=== PATIENT | female | born 1995 | race Caucasian/White ===

== ENCOUNTER 2019-07-27 17:37 | Emergency (ER) | payer OTHER, SELFPAY ==
[2019-07-27 17:39] VITALS: BP 174/108; PULSE 81; RESP 17; TEMP 36.7; O2SAT 99; BMI 48.2
--- NOTE | 2019-07-27 18:09 | ED.VISSUMM ---
- ER Visit Summary Date of Service: 07/27/19 Chief Complaint: Palm laceration History of Present Illness: The patient is a 24 F history of anxiety. 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 No other injuries. Tetanus is 10 years old or more. One set updated. She is right-hand dominant. This occurred in the last hour or so. Physical Examination: Well appearing young female no acute distress vital signs stable afebrile. HEENT neck heart-lung abdominal exam unremarkable. Right palm she is a 2 centimeter laceration in her right palm. It is on the thenar eminence. There is oozing of blood. No pulsatile bleeding. Otherwise he is neurovascularly intact. No signs of infection or foreign body. Full flexion and extension of the right hand. Normal touch sensation and motor strength. Test Results: None Emergency Department Course and Treatment: Procedure note. Lidocaine local anesthetic to the wound. Washed with saline cleaned with Shur-Clens irrigated and explored. Closed using 2 simple interrupted 4-0 Ethilon sutures. Proper hemostasis wound closure obtained. Patient was warned of wound care and any signs of infection return. Treatment Plan: Suture removal 7 to 10 days. Wound care. Tetanus updated. Disposition: Discharge Impression: Right hand laceration with ER repair of 2 cm Tetanus updated This note was generated with [employer] dictation software. It may contain incorrect words, spelling, and punctuation that were not noted in review of the chart prior to signing ED Disposition - Plan for ED Patient: Referrals: Ang Madrigal PA [Primary Care Provider] -
--- NOTE | 2019-07-27 18:11 | ED.DEP ---
ED Disposition - Plan for ED Patient: Disposition: Home or Assisted Living Instructions: LACERATION, Hand Referrals: Ang Madrigal PA [Primary Care Provider] - 10 Day for suture removal Additional Instructions: Keep wound clean. Antibiotic ointment applied twice daily. Clean twice daily with soap water peroxide and water. Watch for any signs of infection such as pus, fever swelling or red streaks. Is seen return. Suture removal in 7 to 10 days.
[2019-07-27] MEDS: Diphth,Pertuss(Acell),Tet Vac 0.5 ML Vial IM (18:23)
== END 2019-07-27 18:32 | disposition home or self-care (01) ==
LOC: ED 18:17
PROVIDERS: Emergency Provider Emergency Medicine; Family Provider Physician Assistant; PCP Physician Assistant
DX: S61.411A Laceration without foreign body of right hand, initial encounter (principal); W26.0XXA Contact with knife, initial encounter; Y93.E9 Activity, other interior property and clothing maintenance; F41.9 Anxiety disorder, unspecified
CPT/HCPCS: 12001; 90715; 99282

== ENCOUNTER 2020-01-11 13:13 | Emergency (ER) | payer OTHER, SELFPAY ==
[2020-01-11 13:14] VITALS: BP 167/119; PULSE 75; RESP 20; TEMP 37; O2SAT 98; BMI 49.1
--- NOTE | 2020-01-11 13:27 | ED.VIS.GEN ---
History of Present Illness Chief Complaint: Hypertension Informant: Patient Onset: Weeks Maximum Severity: Mild Narrative: Currently in [facility] emergency The patient presents reporting her blood pressures been elevated for about a week or so, she is in the doctor's office recently refill Paxil it was elevated to about 150 she has been measuring her blood pressure at home and today was about 200/110, she had a very mild headache but otherwise she states she feels fine totally asymptomatic no fever no cough no chest pain no abdominal pain no numbness weakness paresthesias normal bowel bladder habits normal diet no weight gain no edema, she does report hypertension runs in her family she denies being and again normal bowel bladder habits and negative review of systems Past Medical History - Allergies and Home Meds Allergies/Adverse Reactions: Allergies No Known Allergies Allergy (Verified 01/11/20 13:16) Primary Care Physician: Ang Madrigal PA [Primary Care Provider] - Past Medical History: - - Paxil for anxiety otherwise negative Smoking Status: Light Smoker (<10/day) Review of Systems General: Denies: Chills, Fever, Sweats Eyes: Reports: - - Mild headache. Denies: Visual changes - bilaterally, Diplopia ENT: Denies: Rhinorrhea, Sore throat Cardiovascular: Denies: Chest pain, Palpitations Respiratory: Denies: Dyspnea, Cough, Dyspnea on exertion Gastrointestinal: Denies: Abdominal pain, Nausea, Vomiting, Diarrhea, Melena, Hematochezia Genitourinary: Denies: Dysuria, Hematuria, Frequency Musculoskeletal: Denies: Back pain, Extremity Pain Skin: Denies: Rash, Wounds Neurological: Denies: Headache, Weakness, Numbness Physical Exam Vital Signs/Narrative: Vital Signs Temp Pulse Resp BP Pulse Ox 01/11/20 13:14 98.6 F 75 20 H 167/119 H 98 General: Well nourished, Well developed, No Acute Distress, - - He is in no distress HEENT cardiac pulmonary GI neurologic exam all unremarkable, she is smiling she is a large woman indicates she is not gained weight she has no signs of leg edema she is had normal bowel bladder habits Head: Normocephalic, Atraumatic Eyes: Perrl, EOMI ENT: Moist mucous membranes, No rhinorrhea Neck: Supple, Nontender Cardiovascular: Regular rate, Regular rhythm, No murmurs Respiratory: No distress, CTA bilaterally, Chest nontender Abdomen: Soft, Nontender, Nondistended, Normal bowel sounds Back: Nontender, Normal Inspection Extremities: Nontender, No edema Skin: Normal color, No rash Neurological: Alert, Oriented x3, Cranial nerves II-XII grossly intact, Normal Strength, Normal Sensation Psychological: Normal affect, Normal Mood Diagnostic/Tx/Re-eval - Medical Decision Making Apparently her spouse is a nurse and that individual took the blood pressure reading at home that was elevated to the above her current blood pressure is about 160/110, she will be treated with clonidine 0.2 mg p.o. we will discussed the case with her primary care physicians The patient's blood pressure is improved now to about 150/80 she has no complaints we discussed ED management and evaluation with testing etc. she deferred that as again she feels fine and back to baseline, we did page primary care we have not been able to contact them, she is comfortable with discharge home calling her primary care physicians tomorrow to discuss other management options that might include lifestyle modifications versus medications and return for change in symptoms Home stable Impression final transiently elevated blood pressure ED Disposition - Plan for ED Patient: Diagnosis: Hypertension Instructions: HYPERTENSION, To Be Confirmed Referrals: Ang Madrigal PA [Primary Care Provider] - Additional Instructions: Call your physician tomorrow for follow-up options and further management options related to hypertension return for change in symptoms
[2020-01-11 13:32] VITALS: BP 156/85
[2020-01-11] MEDS: cloNIDine HCl 0.1 MG Tablet 0.2 MG PO (13:32)
[2020-01-11 14:18] VITALS: BP 137/81; PULSE 68; RESP 18; O2SAT 96
== END 2020-01-11 14:19 | disposition home or self-care (01) ==
LOC: ED 13:46
PROVIDERS: Emergency Provider Emergency Medicine; PCP Physician Assistant
DX: I10 Essential (primary) hypertension (principal); F17.200 Nicotine dependence, unspecified, uncomplicated; Z79.899 Other long term (current) drug therapy
CPT/HCPCS: 99283

== ENCOUNTER → 2020-08-26 11:30 | Outpatient (CLI) | payer OTHER, SELFPAY ==
[2020-08-26 10:32] VITALS: BMI 46.3
[2020-08-26 11:51] LABS: Absolute Lymphocyte Count 2.66 X10^3/uL (0.83-4.51); Absolute Neutrophil Count 5.9 X10^3/uL (2.0-7.7); Basophil# 0.06 X10^3/uL; Basophil% 0.6 % (0-1); Eosinophil# 0.14 X10^3/uL; Eosinophils% 1.5 % (0-5); Hematocrit 40.5 % (37-47); Hemoglobin 13.4 g/dL (12.0-15.0); Lymphocyte # 2.66 X10^3/ul (4.0); Lymphocyte % 28.6 % (19-41); Mean Corp Hgb Conc 33.1 g/dL (32-36); Mean Corpuscular Hgb 28.8 pg (27.0-32.0); Mean Corpuscular Volume 86.9 fL (81-99); Mean Platelet Vol. 9.4 fl (6.2-12.0); Monocyte# 0.51 X10^3/uL; Monocyte% 5.5 % (0-10); NRBC Flagged by Analyzer 0 % (0-5); Neutrophil # 5.88 X10^3/uL (2.7-7.7); Neutrophil % 63.4 % (47-70); Platelet Count 375 K/mm3 (150-450); RBC Distribution Width CV 12.7 % (11.6-14.6); Red Blood Count 4.66 M/mm3 (4.2-5.4); White Blood Count 9.3 K/mm3 (4.4-11.0)
[2020-08-26 12:18] LABS: AST(SGOT) 32 U/L (15-37); Alanine Aminotransfer ALT/SGPT 56 U/L (13-56); Albumin, Serum 3.8 g/dL (3.2-5.0); Alkaline Phosphatase 89 U/L (45-117); Anion Gap 7 (5-15); BUN 10 mg/dL (7-18); BUN/Creat Ratio 13.2 RATIO (10-20); Calcium,Total 9.1 mg/dL (8.5-10.1); Chloride 110 mmol/L (98-107); Cholesterol 227 mg/dL (200); Creatinine, Serum 0.76 mg/dL (0.55-1.02); EST Glomerular Filtration Rate 98 mL/min (>60); Est Glom Filt Rate - Afr Amer 119 mL/min (>60); Estradiol 31.2 pg/mL; Follicle Stimulating Hormone 5.3 mIU/mL; Globulin 3.9 g/dL (2.2-4.2); Glucose 94 mg/dL (74-106); High Density Lipoprotein 42 mg/dL; Luteinizing Hormone 3.1 mIU/mL; Prolactin 7.9 ng/mL; Protein, Total 7.7 g/dL (6.4-8.2); Sodium Level 139 mmol/L (136-145); Thyroid Stim Hormone (TSH) 0.71 uIU/mL (0.358-3.74); Triglycerides 191 mg/dL; Very Low Density Lipoprotein 38 mg/dL (5-40)
[2020-08-26 13:07] LABS: Hemoglobin A1c 5.4 % (3.8-5.6)
[2020-09-01 16:08] LABS: Testosterone, % Free 2.24 % (0.50-2.80); Testosterone, Free 0.18 ng/dL (0.10-0.85); Testosterone, Total 8 ng/dL (8-48)
[2020-09-01 16:20] LABS: HPV Reflexed? NOT INDICATED
[2020-09-01 16:25] LABS: Anti-Mullerian Hormone,Serum 5.52 ng/mL (.)
== END ==
PROVIDERS: Referring Provider Obstetrics & Gynecology; Visit Provider Obstetrics & Gynecology
DX: Z12.4 Encounter for screening for malignant neoplasm of cervix (principal); N97.9 Female infertility, unspecified; I10 Essential (primary) hypertension; Z13.220 Encounter for screening for lipoid disorders
CPT/HCPCS: 36415; 80053; 80061; 82627; 82670; 83001; 83002; 83036; 83516; 84146; 84402; 84403; 84443; 85025; 88175; 82626; G0145